=== PATIENT | female | born 1975 | race Caucasian/White ===

== ENCOUNTER 2017-12-04 23:49 | Day surgery (SDC) | payer OTHER ==
[2017-12-05 00:17] VITALS: BP 125/58; TEMP 98.1; BMI 20.1
--- NOTE | 2017-12-05 00:33 | PDOC.EVN ---
Event Note - Event Note Event Note: I ordered robaxin for suspected low back spasm. Clinically, do not suspect pyelo at this time but UA cath just collected for lab
[2017-12-05] MEDS ORDERED: Methocarbamol 500 MG TAB PO SCH (00:45)
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
[2017-12-05 01:25] LABS: Bilirubin Negative (Negative); Blood, Urine Trace (Negative); Clarity CLEAR (Clear); Glucose, Urine (Dipstick) Negative (Negative); Leukocyte Negative (Negative); Nitrite Negative (Negative); Protein, Urine (Dipstick) Negative (Neg-Trace); Specific Gravity, Urine 1.013 (1.002-1.036); Urobilinogen 0.2 mg/dL (0.2-1.0); pH, Urine 6.5 (5.0-9.0)
[2017-12-05 01:28] LABS: Bacteria/HPF None Seen HPF (None Seen); Hyaline Casts/LPF 0-3 HYALINE CAST LPF (0-3 Hyaline); Pathc Cast-AUWi Flag 0.14 (0-2.49); RBC/HPF 0-3 HPF (0-3); Squamous Epithelial 0-3 HPF (0-3); WBC/HPF 0-3 HPF (0-3)
[2017-12-05 01:37] LABS: Renal Epithelial None Seen HPF (0-3); Transitional Epithelial 0-3 HPF (0-3)
--- NOTE | 2017-12-05 01:51 | PDOC.EVN ---
Event Note - Event Note Event Note: urine is clear
[2017-12-05 01:52] LABS: #Eosinphils 0.1 thou/uL (0.0-0.7); #Lymphocytes 1.2 thou/uL (1.20-3.40); #Monocytes 0.6 thou/uL (0.11-0.59); #Neutrophils 12.1 thou/uL (1.40-6.50); %Basophils 0.1 % (0.0-1.0); %Lymphocytes 8.3 % (21.0-51.0); %Monocytes 4.5 % (0.0-10.0); %Neutrophils 86.1 % (42.0-75.0); Hemoglobin 11.8 g/dL (12.0-16.0); Mean Corpuscular HGB CONC 34.1 g/dL (32.0-36.0); Mean Corpuscular Hemoglobin 30.9 pg (27.0-31.0); Mean Corpuscular Volume 90.8 fL (78.0-98.0); Mean Platelet Volume 7.3 fL (7.4-10.4); Platelet Count 259 thou/uL (130-400); RBC Distribution Width 12.8 % (11.5-14.5); Red Blood Cell (RBC) Count 3.81 mill/uL (4.20-5.40); White Blood Cell (WBC) Count 14.1 thou/uL (4.8-10.8)
--- NOTE | 2017-12-05 02:15 | PDOC.EVN ---
Event Note - Event Note Event Note: CBC with WBC of 14. Still afebrile, with negative UA.
[2017-12-05 02:21] LABS: ALT (SGPT) 12 U/L (8-55); AST (SGOT) 15 U/L (5-34); Albumin 3.4 g/dL (3.5-5.0); Alkaline Phosphatase 49 U/L (40-150); Anion Gap 13 mmol/L (10-20); BUN (Urea Nitrogen) 10 mg/dL (7.0-18.7); Bilirubin, Total 0.3 mg/dL (0.2-1.2); Calc. Creatinine Clearance 109 mL/min (70-130); Calcium 9.2 mg/dL (7.8-10.44); Carbon Dioxide 22 mmol/L (22-29); Chloride 108 mmol/L (98-107); Estimated GFR-MDRD Greater than 90; Globulin 2.9 g/dL (2.4-3.5); Glucose 103 mg/dL (70-105); Potassium 3.7 mmol/L (3.5-5.1); Protein, Total 6.3 g/dL (6.0-8.3); Sodium 139 mmol/L (136-145)
--- NOTE | 2017-12-05 02:23 | PDOC.EVN ---
Event Note - Event Note Event Note: Seen at bedside, she feels better after robaxin..pain decraesed. Suspect it was muscle spasm. I also offered 1 liter LR for hydration for conservative care to help with muscle hydration. Order placed. awaiting CMP. If CMP OK, ok for release after the IVFs
--- NOTE | 2017-12-05 02:25 | PDOC.EVN ---
Event Note - Event Note Event Note: CMP is normal
[2017-12-05] MEDS ORDERED: Lactated Ringer's 1,000 ML IV SCH (02:30)
== END 2017-12-05 03:30 | disposition home or self-care (01) ==
LOC: L&D/OP 23:49
PROVIDERS: ATTEND Obstetrics & Gynecology
DX: O99.89 Other specified diseases and conditions complicating pregnancy, childbirth and the puerperium (principal); M54.5 Low back pain; Z3A.21 21 weeks gestation of pregnancy
CPT/HCPCS: 36415; 51701; 80053; 81003; 81015; 85025; 90471; 90686; 96360; 99283; G0008

== ENCOUNTER 2017-12-28 13:53 | Outpatient (CLI) | payer OTHER ==
--- NOTE | 2017-12-28 15:15 | ULT ---
ULTRASOUND RENAL BILATERAL STANDARD: HISTORY: Right flank pain R10.9, unspecified abdominal pain. FINDINGS: The patient is 25 weeks . The patient supposedly passed a renal stone 3 weeks ago. The righ t kidney measures 9.5 x 5.1 x 5.1 cm with moderate right-sided hydronephrosis. Left kidney measures 10.5 x 5.9 x 4.6 cm. Both ureteral jets are visualized. IMPRESSION: Moderate right-sided hydronephrosis with visualized ureteral jets. No calculi are appreciated within the renal collecting systems. POS: [facility]
== END 2017-12-28 13:54 | disposition home or self-care (01) ==
LOC: SCSULT 13:53
PROVIDERS: ATTEND Obstetrics & Gynecology
DX: O99.89 Other specified diseases and conditions complicating pregnancy, childbirth and the puerperium (principal); R10.9 Unspecified abdominal pain; N13.30 Unspecified hydronephrosis; Z3A.25 25 weeks gestation of pregnancy
CPT/HCPCS: 76770

== ENCOUNTER 2018-02-13 17:24 | Inpatient (IN) | payer OTHER ==
[2018-02-13 17:54] VITALS: BMI 22.4
[2018-02-13 18:52] LABS: FFN Internal QC Analyzer PASS (PASS); FFN Internal QC Cassette PASS (PASS); Fetal Fibronectin POSITIVE (Negative)
[2018-02-13] MEDS ORDERED: Lactated Ringer's 1,000 ML IV SCH (19:00)
[2018-02-13] MEDS ORDERED: Promethazine HCl 25 MG/ML VIAL IM PRN (19:22)
[2018-02-13] MEDS ORDERED: Lidocaine 1% (PF) 30 ML VIAL SC PRN (19:22)
[2018-02-13] MEDS ORDERED: Acetaminophen 500 MG TAB PO PRN (19:22)
[2018-02-13] MEDS ORDERED: Butorphanol Tartrate 1 MG/ML VIAL SLOW IVP PRN (19:22)
[2018-02-13] MEDS ORDERED: Ondansetron PF 4 MG/2 ML Vial IVP PRN (19:22)
[2018-02-13] MEDS ORDERED: Magnesium Sulfate 20 GM/WATER 500 ML BAG IVPB SCH (19:30)
[2018-02-13] MEDS ORDERED: Penicillin G Potassium 5 MILL.UNITS in Sodium Chloride 0.9% 100 ML IVPB SCH (19:30)
--- NOTE | 2018-02-13 19:31 | PDOC.LDHP ---
Labor and Delivery H&P Chief complaint: contractions HPI: 42 yo WF sent from office by Dr. Wynn c/o [facility]. Denies SROM or bleeding. Current gestational age (weeks): 31 Due date: 04/12/18 Dating criteria: last menstrual period Grav: 1 Para: 0 OB History Details: none Current complications: none Abnormal US findings: No Past Medical History: asthma Current medications: pre-omari vitamins, other (Advair, rescue inhaler) Previous surgical history: other (rhinoplasy x 2) Allergies/Adverse Reactions: Allergies Allergy/AdvReac Type Severity Reaction Status Date / Time No Known Allergies Allergy Verified 02/13/18 17:55 Social history: none - Physical Exam Vital signs reviewed and normal: yes General: resting Lungs: nonlabored breathing Abdomen: gravid Extremeties: no edema FHT: category 1 [place] contractions every: Ucs q 2-3 mins. - Vaginal Exam cm dilated: 1 Effacement: 75% Station: -1 - OB Labs Blood type: unknown RH: unknown Antibody Screen: unknown - Assessment L&D Assessment: labor - Plan Plan: admit to L&D, magnesium for neuroprotection (steroids for FLM, Dr. Wynn notified)
[2018-02-13] MEDS ORDERED: Magnesium Sulfate 20 gm/500 ml 20 GM/500 ML BAG ONE (19:35)
[2018-02-13] MEDS: Lactated Ringer's 1,000 ML IV SCH (19:53)
[2018-02-13] MEDS: Betamet Acet/Betamet Na Ph 30 MG/5 ML VIAL IM SCH (20:05)
--- NOTE | 2018-02-13 21:07 | ULT ---
OB ULTRASOUND: 02/13/18 HISTORY: female with labor. TECHNIQUE: Multiplanar mariano scale and color doppler images were obtained in a transabdominal ultrasound. FINDINGS: There is a single intrauterine with heart rate of 132 beats per minute. Average age of the fetus based off today's examination is 32 weeks, 2 days. The following measurements were taken and da reyna based off these measurements are as follows: BPD 8.63 cm 34 weeks, 6 days HC 30.76 cm 34 weeks, 2 days AC 27.43 cm 31 weeks, 4 days FL 5.51 cm 29 weeks, 0 days Estimated weight is 1735 grams. The placenta is anterior in location without focal abnormality. The fetus is in vertex presentation. LEON is 17.8 cm, which is normal. IMPRESSION: 1. Single live intrauterine with estimated age of 32 weeks, 2 days. 2. There are discrepant biometric measurements with relative increase size of the head com pared to the femur length and abdominal circumference. This is of uncertain significance. POS: [facility]
[2018-02-13 21:18] LABS: #Basophils 0.1 thou/uL (0.0-0.2); #Eosinphils 0.1 thou/uL (0.0-0.7); #Lymphocytes 2.7 thou/uL (1.20-3.40); #Monocytes 0.6 thou/uL (0.11-0.59); #Neutrophils 8.9 thou/uL (1.40-6.50); %Basophils 0.6 % (0.0-1.0); %Lymphocytes 21.8 % (21.0-51.0); %Monocytes 4.4 % (0.0-10.0); %Neutrophils 72.2 % (42.0-75.0); Hemoglobin 14.2 g/dL (12.0-16.0); Mean Corpuscular HGB CONC 34.4 g/dL (32.0-36.0); Mean Corpuscular Volume 90.1 fL (78.0-98.0); Mean Platelet Volume 8.1 fL (7.4-10.4); Platelet Count 251 thou/uL (130-400); RBC Distribution Width 12.2 % (11.5-14.5); Red Blood Cell (RBC) Count 4.59 mill/uL (4.20-5.40); White Blood Cell (WBC) Count 12.3 thou/uL (4.8-10.8)
[2018-02-13 21:28] LABS: Bilirubin Negative (Negative); Blood, Urine Negative (Negative); Clarity CLEAR (Clear); Glucose, Urine (Dipstick) Negative (Negative); Leukocyte Negative (Negative); Nitrite Negative (Negative); Protein, Urine (Dipstick) Negative (Neg-Trace); Specific Gravity, Urine 1.006 (1.002-1.036); Urobilinogen 0.2 mg/dL (0.2-1.0); pH, Urine 7.5 (5.0-9.0)
[2018-02-13 21:30] LABS: Bacteria/HPF None Seen HPF (None Seen); Hyaline Casts/LPF 0-3 HYALINE CAST LPF (0-3 Hyaline); Pathc Cast-AUWi Flag 0.14 (0-2.49); RBC/HPF 0-3 HPF (0-3); Squamous Epithelial 0-3 HPF (0-3); WBC/HPF None Seen HPF (0-3)
[2018-02-13 21:35] VITALS: BP 123/58; TEMP 98.1
[2018-02-13 21:59] LABS: Syphilis Antibody Nonreactive (Nonreactive); Syphilis Antibody Index 0.03 S/CO (<1.00 Non-Reactive)
[2018-02-13 22:07] LABS: HIV (1/2) Antibody/Antigen Non-Reactive (NonReactive); Hep B Surf Ag Non-Reactive S/CO (NonReactive)
[2018-02-14] MEDS: Penicillin G 2.5 MILL.units 2.5 MILL.UNITS in Premix Bag 1 BAG IVPB SCH ×7 (01:10→21:37)
[2018-02-14] MEDS: Magnesium Sulfate 20 gm/500 ml 20 GM/500 ML BAG IVPB SCH ×2 (03:51→15:57)
--- NOTE | 2018-02-14 12:02 | PDOC.LDPN ---
Labor & Delivery Progress Note - Subjective Subjective: other (Feels slightly dizzy, no SOB or CP. No ctx. Good FM. No LOF. ) - Objective Vital signs reviewed and normal: yes General: NAD Uterine fundus: non tender FHT: category 1 (120s, reactive ) [place] contractions every: q10 min - Assessment (1) 31 weeks gestation of Code(s): Z3A.31 - 31 WEEKS GESTATION OF Current Visit: Yes Status : Acute (2) labor Code(s): O60.00 - LABOR WITHOUT DELIVERY, UNSPECIFIED TRIMESTER Current Visit: Yes Status: Acute (3) Advanced maternal age (AMA) in Code(s): [id number] - Current Visit: Yes Status: Acute -: Continue magnesium for neuroprotection and tocolysis. Decrease rate and check mag level due to sx. Good DTRs. Complete BMTZ course tomorrow for FLM. Continue GBS PPX until culture complete. Continue observation in L&D.
[2018-02-14] MEDS: Lactated Ringer's 1,000 ML IV SCH ×2 (12:22→21:38)
[2018-02-14] MEDS ORDERED: Benzocaine/Menthol 20-0.5% 60 ML CAN TOP PRN (20:50)
[2018-02-14] MEDS: Betamet Acet/Betamet Na Ph 30 MG/5 ML VIAL IM SCH (21:36)
[2018-02-15] MEDS: Penicillin G 2.5 MILL.units 2.5 MILL.UNITS in Premix Bag 1 BAG IVPB SCH ×2 (01:23→05:47)
[2018-02-15] MEDS: Lactated Ringer's 1,000 ML IV SCH ×3 (05:42→22:34)
--- NOTE | 2018-02-15 08:42 | PDOC.LDPN ---
Labor & Delivery Progress Note - Subjective Subjective: comfortable - Objective Vital signs reviewed and normal: yes General: NAD Uterine fundus: non tender Dilation: FT Effacement: 75% Station: -2 FHT: category 1 (120s, reactive, no decels ) [place] contractions every: no ct x - Assessment (1) 31 weeks gestation of Code(s): Z3A.31 - 31 WEEKS GESTATION OF Current Visit: Yes Status : Acute (2) labor Code(s): O60.00 - LABOR WITHOUT DELIVERY, UNSPECIFIED TRIMESTER Current Visit: Yes Status: Acute (3) Advanced maternal age (AMA) in Code(s): [id number] - Current Visit: Yes Status: Acute -: Completed BMTZ course for FLM and Mag for neuroprotection. D/C mag as not longer ctx and exam stable. Monitory today and plan for possible d/c this evening vs tomorrow morning.
--- NOTE | 2018-02-15 19:10 | PDOC.LDPN ---
Labor & Delivery Progress Note - Subjective Subjective: comfortable - Objective Vital signs reviewed and normal: yes General: NAD Uterine fundus: non tender FHT: category 2 (120s-130s, mod gregorio, +accels, rare prolonged decel, most recent with william to 70s with recovery after 3-4 min) - Assessment (1) 31 weeks gestation of Code(s): Z3A.31 - 31 WEEKS GESTATION OF Current Visit: Yes Status : Acute (2) labor Code(s): O60.00 - LABOR WITHOUT DELIVERY, UNSPECIFIED TRIMESTER Current Visit: Yes Status: Acute (3) Advanced maternal age (AMA) in Code(s): [id number] - Current Visit: Yes Status: Acute -: s/p mag and BMTZ. Pt no longer have ctx. Cat 2 FHTs on occasion, currently reactive and reassuring. BPP 8/8. Clinically no signs of placental abruption. Continuous EFM at this time. Keep NPO. If reactive overnight, repeat BPP with dopplers in the AM. Reviewed with pt that if she has continued decels, delivery may be necessary. Reviewed indications for premature delivery.
[2018-02-15 19:41] LABS: #Lymphocytes 1.2 thou/uL (1.20-3.40); #Monocytes 0.8 thou/uL (0.11-0.59); #Neutrophils 11.9 thou/uL (1.40-6.50); %Basophils 0.3 % (0.0-1.0); %Eosinophils 0.3 % (0.0-10.0); %Lymphocytes 8.7 % (21.0-51.0); %Neutrophils 84.7 % (42.0-75.0); Hemoglobin 10.9 g/dL (12.0-16.0); Mean Corpuscular HGB CONC 33.8 g/dL (32.0-36.0); Mean Corpuscular Hemoglobin 30.9 pg (27.0-31.0); Mean Corpuscular Volume 91.5 fL (78.0-98.0); Mean Platelet Volume 8.1 fL (7.4-10.4); Platelet Count 189 thou/uL (130-400); RBC Distribution Width 12.1 % (11.5-14.5); Red Blood Cell (RBC) Count 3.53 mill/uL (4.20-5.40); White Blood Cell (WBC) Count 14.1 thou/uL (4.8-10.8)
[2018-02-15 19:46] LABS: Fibrinogen 530 mg/dL (253-463); INR-International Normal Ratio 0.9; Prothrombin Time 12.7 SEC (12.0-14.7)
--- NOTE | 2018-02-15 19:49 | ULT ---
NONSTRESS BIOPHYSICAL PROFILE 02/15/18 HISTORY: 31 weeks patient. decelerations on monitor. COMPARISON: None. TECHNIQUE: Nonstress biophysical profile. FINDINGS: Vertex presentation. heart tones with a rate of 127 beats per minute. Amniotic fluid index is 1 6 cm. The visualized cervix appears to be unremarkable. The exact cervical length is not demonstrated . The anterior placenta is noted. Limited evaluation for the presence or absence of previa. Baseline image is provided, there does not appear to be previa. Nonstress biophysical profile: movement - 2 tone - 2 breathing - 2 Amniotic fluid - 2 Total score 8 out of 8. IMPRESSION: 1. Total score 8 out of 8. 2. Suboptimal evaluation of the cervix. POS: [facility]
[2018-02-15 19:50] LABS: FSP-Qualitative ABNORMAL (Normal); FSP-Semiquantitative >=5 & <20 mcg/mL (Less than 5)
[2018-02-16] MEDS: Lactated Ringer's 1,000 ML IV SCH ×2 (04:31→06:47)
--- NOTE | 2018-02-16 06:26 | PDOC.LDPN ---
Labor & Delivery Progress Note - Objective Vital signs reviewed and normal: yes General: NAD Uterine fundus: non tender [place] contractions every: rare - Assessment (1) labor Code(s): O60.00 - LABOR WITHOUT DELIVERY, UNSPECIFIED TRIMESTER Current Visit: Yes Status: Acute Plan: continue plan of care (Patient is 32 weeks today, last celestone was on ...now off Mag. Here with cvontinued monitoring for decels..BPP was 8/ 8 on 02/15. Prob home today or tomorrow as long as decels are non-persistent. CX was at most 1 cm by report)
[2018-02-16 07:34] LABS: #Lymphocytes 1.7 thou/uL (1.20-3.40); #Monocytes 0.7 thou/uL (0.11-0.59); #Neutrophils 10.3 thou/uL (1.40-6.50); %Basophils 0.2 % (0.0-1.0); %Eosinophils 0.3 % (0.0-10.0); %Lymphocytes 13.6 % (21.0-51.0); %Monocytes 5.6 % (0.0-10.0); %Neutrophils 80.3 % (42.0-75.0); Hemoglobin 10.7 g/dL (12.0-16.0); Mean Corpuscular HGB CONC 33.4 g/dL (32.0-36.0); Mean Corpuscular Hemoglobin 30.8 pg (27.0-31.0); Mean Corpuscular Volume 92.3 fL (78.0-98.0); Mean Platelet Volume 7.8 fL (7.4-10.4); Platelet Count 179 thou/uL (130-400); RBC Distribution Width 12.2 % (11.5-14.5); Red Blood Cell (RBC) Count 3.46 mill/uL (4.20-5.40); White Blood Cell (WBC) Count 12.8 thou/uL (4.8-10.8)
--- NOTE | 2018-02-16 13:18 | ULT ---
SONOGRAPHIC BIOPHYSICAL PROFILE EXAM UMBILICAL ARTERY DUPLEX EXAM: HISTORY: Third trimester gestation. distress. FINDINGS: Good movement, breathing movement, and tone are demonstrated. Amniotic fluid index 10.4. Good color and spectral Doppler flow within the umbilical artery. S-D ratio calculated at 2.5. IMPRESSION: 1. Sonographic biophysical profile score 8/8. 2. Normal umbilical artery duplex evaluation. POS: [facility]
--- NOTE | 2018-02-17 02:27 | DIS ---
DATE OF ADMISSION: 02/14/2018 DATE OF DISCHARGE: 02/16/2018 ADMISSION DIAGNOSES: 1. 31-week and 5-day intrauterine . 2. labor. DISCHARGE DIAGNOSES: 1. 31-week and 5-day intrauterine . 2. labor. 3. Intermittent deceleration, which has resolved with prolonged observation. DISCHARGE PHYSICIAN: Adilia Morrissey DO BRIEF HOSPITAL COURSE: Ms. Maximiliano Pires is a 42-year-old G1, P0, who presented at 31 weeks and 5 days with contractions and positive fibronectin and found to be approximately 1 cm dilated, 70% effaced. The patient was admitted for administration of magnesium for neuroprotection, betamethasone course for lung maturity, and observation due to labor. Her labor seized with magnesium for tocolysis and she completed her course of betamethasone. Yesterday afternoon, the patient's fetus had acute prolonged deceleration intermittently by multiple hours and therefore, she underwent prolonged observation. She has had 2 biophysical profiles, which were 8/8 and had normal umbilical artery doppler assessment this morning. Her fetus has remained reassuring the entire day today, suspect that the decelerations that were seen were possibly due to maternal positioning and just transient intermittent, do not suspect evidence of any placental insufficiency or any other concerning pathology. Therefore, the patient was counseled and at this point the patient is appropriate for outpatient followup. Discussed in great detail the importance of kick counts and present to Labor and Delivery or to call the office with concern. FOLLOWUP: Weekly appointments. DISPOSITION: Discharged home. DISCHARGE MEDICATIONS: Continue home albuterol, Advair, and vitamins. Job ID: [id number] [facility]
--- NOTE | 2018-02-21 14:21 | ULT ---
SONOGRAPHIC BIOPHYSICAL PROFILE EXAM UMBILICAL ARTERY DUPLEX EXAM: HISTORY: Third trimester gestation. distress. FINDINGS: Good movement, breathing movement, and tone are demonstrated. Amniotic fluid index 10.4. Good color and spectral Doppler flow within the umbilical artery. S-D ratio calculated at 2.5. IMPRESSION: 1. Sonographic biophysical profile score 8/8. 2. Normal umbilical artery duplex evaluation.
== END 2018-02-16 17:12 | disposition home health service (06) | DRG 833 ==
LOC: L&D/OP 17:24 → L&D 02-14 01:20 → OBSVTOIN 02-14 01:20
PROVIDERS: ADMIT Obstetrics & Gynecology; ATTEND Obstetrics & Gynecology
DX: O60.03 Preterm labor without delivery, third trimester (principal); O76 Abnormality in fetal heart rate and rhythm complicating labor and delivery; J45.909 Unspecified asthma, uncomplicated; O99.513 Diseases of the respiratory system complicating pregnancy, third trimester; Z3A.31 31 weeks gestation of pregnancy
CPT/HCPCS: 36415; 51702; 76700; 76805; 76819; 81001; 82731; 83735; 85025; 85362; 85384; 85460; 85610; 86780; 86850; 86870; 86900; 86901; 87081; 87340; 87389; 99285; J0702; J2540; J3475; J7050

== ENCOUNTER 2018-02-18 15:29 | Day surgery (SDC) | payer OTHER ==
[2018-02-18] MEDS: Lactated Ringer's 1,000 ML IV SCH ×2 (15:45→16:57)
[2018-02-18 15:48] VITALS: BMI 22.6
--- NOTE | 2018-02-18 18:30 | ULT ---
LIMITED OB ULTRASOUND: HISTORY: A 42-year-old female with a history of pre-term contractions. Exam is limited only to cervical lengt h. FINDINGS: Cervical length equals 2.7 cm. The fetus is in a cephalic presentation. IMPRESSION: Cervical length 2.7 cm. These results were given to Dr. Gallegos at the time of the exam, by the radiographic technologist. CODE CR POS: [facility]
--- NOTE | 2018-02-18 18:52 | ER ---
DATE OF SERVICE: 02/18/2018 PRIMARY DRY SANDER: Adilia Morrissey DO CHIEF COMPLAINT: Uterine contractions. HISTORY OF PRESENT ILLNESS: The patient is a 42-year-old G1, P0 female with an intrauterine at 31 weeks, who is presenting to OB ER from clinic after the patient was evaluated there and noted to have uterine contractions about every minute. The patient was recently admitted for concerns of labor and was given steroids at that time for lung maturity. On arrival, the patient reports that she is not feeling any uterine contraction. She denies any recent illness, fever, fall, headache, chest pain, shortness of breath, nausea, vomiting, diarrhea, or constipation. She denies any new rashes, hip problems, knee problems, muscle weakness. Denies vaginal bleeding, leakage of fluid or urinary urgency. PAST MEDICAL HISTORY: Significant for asthma. PAST SURGICAL HISTORY: Rhinoplasty twice. ALLERGIES: NO KNOWN DRUG ALLERGIES. SOCIAL HISTORY: Denies drug, alcohol, tobacco use. OB LABS: Unavailable at time of dictation. REVIEW OF SYSTEMS: Per HPI. PHYSICAL EXAMINATION: VITAL SIGNS: Blood pressure 129/66, heart rate 78, respiratory rate of 18, and temperature 98.2. GENERAL: She appears to be in no acute distress. She is alert, oriented, cooperative, pleasant to interact with. HEAD: Normocephalic and atraumatic. LUNGS: Clear to auscultation bilaterally. HEART: Regular rate and rhythm. ABDOMEN: Soft. EXTREMITIES: Nontender and nonedematous. : Has been deferred at this time, but is reported in the clinic to be fingertip, 70% effaced. heart tracing demonstrates the fetus with a baseline in the 140s with moderate long-term variability with 15 x 15 accelerations. She is having contractions that are irritable in nature with other contractions more visible about 7 minutes apart. The patient denies feeling any contractions that are visible on the monitor. A length was performed. The patient was noted to have a cervical length of 2.8 cm. The patient has received 2 L of IV fluids and is feeling really good. ASSESSMENT AND PLAN: The patient is a 42-year-old G1, P0 female with an intrauterine at 32 weeks and 3 days, who presented to Labor and Delivery ER for further evaluation after uterine contractions were noted on her testing in clinic. The patient has no evidence of labor at this time. In fact, the patient has a cervical length of 2.8 cm today reducing her chances of labor. The patient has been given reassurance. She has a category 1 tracing and reactive NST. The patient's doctor, Dr. Morrissey has been updated on our findings. The patient will be discharged home with followup as scheduled with Dr. Morrissey. labor precautions are provided with instructions to return should she experiences painful contractions more than 4 to 5 an hour. Job ID: [id number]
== END 2018-02-18 17:55 | disposition home health service (06) ==
LOC: L&D/OP 15:29
PROVIDERS: ATTEND Obstetrics & Gynecology
DX: O47.03 False labor before 37 completed weeks of gestation, third trimester (principal); O99.513 Diseases of the respiratory system complicating pregnancy, third trimester; J45.909 Unspecified asthma, uncomplicated; Z3A.32 32 weeks gestation of pregnancy; Z98.890 Other specified postprocedural states; Z79.51 Long term (current) use of inhaled steroids; Z91.040 Latex allergy status
CPT/HCPCS: 76815

== ENCOUNTER 2018-03-18 16:10 | Day surgery (SDC) | payer OTHER ==
[2018-03-18 16:47] VITALS: BMI 22.6
[2018-03-18 17:24] VITALS: BP 118/68; TEMP 98.7
[2018-03-18 17:50] LABS: Bilirubin Negative (Negative); Blood, Urine Negative (Negative); Clarity CLEAR (Clear); Glucose, Urine (Dipstick) Negative (Negative); Leukocyte Small (Negative); Nitrite Negative (Negative); Protein, Urine (Dipstick) Negative (Neg-Trace); Specific Gravity, Urine 1.023 (1.002-1.036); Urobilinogen 0.2 mg/dL (0.2-1.0)
[2018-03-18 17:52] LABS: Bacteria/HPF None Seen HPF (None Seen); Hyaline Casts/LPF 0-3 HYALINE CAST LPF (0-3 Hyaline); Pathc Cast-AUWi Flag 0.14 (0-2.49); RBC/HPF 0-3 HPF (0-3)
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
== END 2018-03-18 18:30 | disposition home or self-care (01) ==
LOC: L&D/OP 16:10
PROVIDERS: ATTEND Obstetrics & Gynecology
DX: O16.3 Unspecified maternal hypertension, third trimester (principal); Z3A.36 36 weeks gestation of pregnancy; Z98.890 Other specified postprocedural states; Z79.51 Long term (current) use of inhaled steroids; Z91.040 Latex allergy status
CPT/HCPCS: 59025; 81001; 99283

== ENCOUNTER 2018-03-25 06:00 | Inpatient (IN) | payer OTHER ==
--- NOTE | 2018-03-24 19:29 | PDOC.LDHP ---
Labor and Delivery H&P Chief complaint: scheduled induction HPI: 42 yo G1 @ 37w2d by LMP who presents for IOL due to GHTN. Antepartum course also complicated by asthma, labor and AMA. Current gestational age (weeks): 37 Due date: 04/12/18 Dating criteria: last menstrual period Grav: 1 Current complications: gestational hypertension Abnormal US findings: No Past Medical History: Asthma Current medications: pre- vitamins, other (advair) Previous surgical history: other (nasal reconstruction) Allergies/Adverse Reactions: Allergies Allergy/AdvReac Type Severity Reaction Status Date / Time latex Allergy Intermediate Rash Verified 02/16/18 17:08 Social history: none - Physical Exam Vital signs reviewed and normal: yes General: NAD Heart: RRR Lungs: nonlabored breathing Abdomen: gravid Extremeties: no edema FHT: category 1 (130s, mod gregorio, +accels, no decels) [place] contractions every: q5+ min - Vaginal Exam cm dilated: 3 (cephalic ) Effacement: 90% Station: -1 - OB Labs Blood type: A RH: negative Antibody Screen: negative HIV: negative RPR: negative HEPSAg: negative 1 hour GCT: negative GBS: negative Urine drug screen: not done Rubella: immune Additional Labs: NIPT, msAFP, carrier screening negative - Assessment 37w3d IUP GHTN AMA Asthma Rh neg - Plan Plan: admit to L&D (start pitocin for IOL), informed consent obtained, anesthesia consult for pain management -: Josueam MAGNUS
[2018-03-25] MEDS ORDERED: Diphenoxylate HCl/Atropine Tablet PO PRN (07:09)
[2018-03-25] MEDS ORDERED: Ibuprofen 800 MG TAB PO PRN (07:09)
[2018-03-25] MEDS ORDERED: Methylergonovine 0.2 MG/ML VIAL IM PRN (07:09)
[2018-03-25] MEDS ORDERED: NS / Oxytocin 40 units/1000ml 1,000 ML IV PRN (07:09)
[2018-03-25] MEDS ORDERED: Butorphanol Tartrate 1 MG/ML VIAL SLOW IVP PRN (07:09)
[2018-03-25] MEDS ORDERED: Acetaminophen 500 MG TAB PO PRN (07:09)
[2018-03-25] MEDS ORDERED: Misoprostol 200 MCG TAB PR PRN (07:09)
[2018-03-25] MEDS ORDERED: HYDROcodone/Acetaminophen 5/325 mg Tablet PO PRN ×2 (07:09→18:05)
[2018-03-25] MEDS ORDERED: Carboprost 250 MCG/ML AMP IM PRN (07:09)
[2018-03-25] MEDS ORDERED: Promethazine HCl 25 MG/ML VIAL IM PRN ×2 (07:09→13:49)
[2018-03-25] MEDS ORDERED: Ondansetron PF 4 MG/2 ML Vial IVP PRN ×2 (07:09→13:49)
[2018-03-25] MEDS ORDERED: Lidocaine 1% (PF) 30 ML VIAL SC PRN (07:09)
[2018-03-25 07:51] VITALS: BMI 22.8
[2018-03-25 07:51] LABS: Hemoglobin 13.1 g/dL (12.0-16.0); Mean Corpuscular HGB CONC 33.9 g/dL (32.0-36.0); Mean Corpuscular Hemoglobin 30.4 pg (27.0-31.0); Mean Corpuscular Volume 89.8 fL (78.0-98.0); Mean Platelet Volume 8.2 fL (7.4-10.4); Platelet Count 239 thou/uL (130-400); Red Blood Cell (RBC) Count 4.29 mill/uL (4.20-5.40); White Blood Cell (WBC) Count 9.3 thou/uL (4.8-10.8)
[2018-03-25 08:12] LABS: ALT (SGPT) 15 U/L (8-55); AST (SGOT) 25 U/L (5-34); Albumin 3.2 g/dL (3.5-5.0); Alkaline Phosphatase 181 U/L (40-150); Anion Gap 16 mmol/L (10-20); BUN (Urea Nitrogen) 9 mg/dL (7.0-18.7); Bilirubin, Total Less than 0.2 mg/dL (0.2-1.2); Calc. Creatinine Clearance 115 mL/min (70-130); Calcium 8.4 mg/dL (7.8-10.44); Carbon Dioxide 17 mmol/L (22-29); Chloride 109 mmol/L (98-107); Estimated GFR-MDRD Greater than 90; Globulin 2.8 g/dL (2.4-3.5); Glucose 117 mg/dL (70-105); Potassium 4.2 mmol/L (3.5-5.1); Sodium 138 mmol/L (136-145)
[2018-03-25 08:30] LABS: Syphilis Antibody Nonreactive (Nonreactive); Syphilis Antibody Index 0.03 S/CO (<1.00 Non-Reactive)
[2018-03-25 08:39] LABS: HBSAg Index 0.19 S/CO (0-0.99); HIV (1/2) Antibody/Antigen Non-Reactive (NonReactive); HIV 1/2 INDEX 0.08 S/CO (<1.00); Hep B Surf Ag Non-Reactive S/CO (NonReactive)
[2018-03-25 11:47] LABS: Bilirubin Negative (Negative); Blood, Urine Large (Negative); Clarity CLEAR (Clear); Glucose, Urine (Dipstick) Negative (Negative); Leukocyte Negative (Negative); Nitrite Negative (Negative); Protein, Urine (Dipstick) Negative (Neg-Trace); Urobilinogen 0.2 mg/dL (0.2-1.0)
[2018-03-25 11:49] LABS: Bacteria/HPF None Seen HPF (None Seen); Hyaline Casts/LPF 0-3 HYALINE CAST LPF (0-3 Hyaline); Pathc Cast-AUWi Flag 0.14 (0-2.49); RBC/HPF GREATER THAN 50-TNTC HPF (0-3); Squamous Epithelial None Seen HPF (0-3); WBC/HPF None Seen HPF (0-3)
--- NOTE | 2018-03-25 13:01 | PDOC.LDPN ---
Labor & Delivery Progress Note - Subjective Subjective: comfortable - Objective Vital signs reviewed and normal: yes Abnormal vital signs: Normal - mild range BPs General: NAD Uterine fundus: non tender Dilation: 5 Effacement: 90% Station: -1 FHT: category 2 (130s, mod gregorio, occasional late decel with ctx that resolve with position changes. ) [place] contractions every: q2 min AROM: clear fluid Resuscitative measures: maternal position change - Assessment (1) 37 weeks gestation of Code(s): Z3A.37 - 37 WEEKS GESTATION OF Current Visit: Yes Status : Acute (2) Gestational hypertension Code(s): O13.9 - GESTATIONAL HTN W/O SIGNIFICANT PROTEINURIA, UNSP TRIMESTER Current Visit: Yes Status: Acute (3) Advanced maternal age (AMA) in Code(s): [id number] - Current Visit: No Status: Acute Plan: continue plan of care, resuscitative measures
[2018-03-25] MEDS ORDERED: Fentanyl 4 mcg/Bup 0.1% Cadd 100 ML ONE (13:21)
[2018-03-25] MEDS ORDERED: Lidocaine 1.5% w/Epi 1:200K 30 ML VIAL (Epid Use) ONE (13:21)
[2018-03-25] MEDS ORDERED: Lactated Ringer's 500 ML IV PRN (13:49)
[2018-03-25] MEDS ORDERED: diphenhydrAMINE 50 MG/ML VIAL IVP PRN (13:49)
[2018-03-25] MEDS ORDERED: Naloxone HCl 0.4 mg/ml Vial IVP PRN ×2 (13:49)
[2018-03-25] MEDS ORDERED: ePHEDrine/0.9% NaCl/PF SYRINGE 50 mg/10 ml SLOW IVP PRN (13:49)
[2018-03-25] MEDS ORDERED: Eucerin (Mineral Oil/Petrolatum,White) 30 gm Jar TOP PRN (13:49)
[2018-03-25] MEDS ORDERED: Acetaminophen 325 MG TAB PO PRN (13:49)
[2018-03-25] MEDS: Lactated Ringer's 1,000 ML IV SCH ×2 (13:50→17:16)
[2018-03-25] MEDS ORDERED: Fentanyl 4 mcg/Bupivacaine 0.1% Cassette 100 ML EPIDURAL SCH (14:00)
[2018-03-25] MEDS ORDERED: Communication Order-Pharmacy FS SCH (14:00)
[2018-03-25] MEDS ORDERED: Bupivacaine/Epinephrine 0.25% 30 ML VIAL ONE (15:00)
[2018-03-25] MEDS ORDERED: Lidocaine 1% (PF) 30 ML VIAL ONE ×2 (15:06→17:13)
[2018-03-25] MEDS ORDERED: NS / Oxytocin 40 units/1000ml 1,000 ML ONE ×2 (15:06→17:13)
--- NOTE | 2018-03-25 16:34 | PDOC.OPDEL ---
OB Operative/Delivery Note Delivery Dr/Surgeon: Adilia Morrissey DO Pre-Delivery Diagnosis: medically indicated induction Procedure/Post Delivery Dx: spontaneous vaginal delivery Weeks gestation: 37 Anesthesia: epidural - Findings A Sex: male - 1 min: 8 - 5 min: 9 - Additional Findings/Plan Placenta delivered: spontaneous Repaired Obstetrical Laceration: 2nd degree Estimated blood loss: 200 cc Post delivery plan: routine recovery
[2018-03-25] MEDS: NS w/ Oxytocin 10 units 500 ML IV SCH (17:16)
[2018-03-25] MEDS ORDERED: Bisacodyl 10 MG SUPP PR PRN (18:05)
[2018-03-25] MEDS ORDERED: Preparation H Ointment 28 GM TUBE PR PRN (18:05)
[2018-03-25] MEDS ORDERED: Milk Of Magnesia 30 ML UDCUP PO PRN (18:05)
[2018-03-25] MEDS ORDERED: diphenhydrAMINE 25 MG CAP PO PRN (18:05)
[2018-03-25] MEDS ORDERED: NS / Oxytocin 40 units/1000ml 1,000 ML IV SCH (18:05)
[2018-03-25] MEDS ORDERED: Benzocaine/Menthol 20-0.5% 60 ML CAN TOP PRN (18:05)
[2018-03-25] MEDS: Ibuprofen 800 MG TAB PO SCH (22:04)
[2018-03-25] MEDS: Docusate Calcium (SURFAK) 240 MG CAP PO SCH (22:04)
[2018-03-26] MEDS: Ibuprofen 800 MG TAB PO SCH ×3 (06:15→22:11)
[2018-03-26 06:36] LABS: Hemoglobin 12.1 g/dL (12.0-16.0); Mean Corpuscular HGB CONC 32.9 g/dL (32.0-36.0); Mean Corpuscular Hemoglobin 30.1 pg (27.0-31.0); Mean Corpuscular Volume 91.2 fL (78.0-98.0); Mean Platelet Volume 7.9 fL (7.4-10.4); Platelet Count 198 thou/uL (130-400); RBC Distribution Width 13.3 % (11.5-14.5); Red Blood Cell (RBC) Count 4.02 mill/uL (4.20-5.40); White Blood Cell (WBC) Count 17.1 thou/uL (4.8-10.8)
--- NOTE | 2018-03-26 08:54 | PDOC.PP ---
Post Progress Note Post Day #: 1 Subjective: min lochia, baby latching well, only concern is urinary incontinence. PO intake tolerated: yes Flatus: yes Ambulation: yes Vital Signs (12 hours) Temp Pulse Resp BP Pulse Ox 03/26/18 08:00 98.1 F 78 20 127/61 95 03/26/18 04:15 79 18 132/70 99 03/26/18 01:30 98.4 F 86 18 137/77 Weight Weight 137 lb - Physical Examination General: NAD Respiratory: non-labored breathing Abdominal: no distention Fundus firm & at: below umb Skin: no rash Neurological: no gross focal deficits Psychiatric: A&Ox3, normal affect Result Diagrams: 03/26/18 06:09 03/25/18 07:22 Additional Labs: Post Labs Blood Type A NEGATIVE 03/25/18 07:22 Hep Bs Antigen Non-Reactive S/CO (NonReactive) 03/25/18 07:22 (1) Vaginal delivery Code(s): O80 - ENCOUNTER FOR FULL-TERM UNCOMPLICATED DELIVERY Status: Acute (2) 37 weeks gestation of Code(s): Z3A.37 - 37 WEEKS GESTATION OF Status: Acute - Assessment/Plan PPD1, doing well, discussed normal vs abn post delivery incontinence. Likely DC tomorrow.
[2018-03-26] MEDS: Docusate Calcium (SURFAK) 240 MG CAP PO SCH ×2 (09:36→22:09)
[2018-03-27] MEDS: NS w/ Oxytocin 10 units 500 ML IV SCH ×2 (05:25→10:10)
[2018-03-27] MEDS: Ibuprofen 800 MG TAB PO SCH (06:17)
--- NOTE | 2018-03-27 08:13 | PDOC.PP ---
Post Progress Note Post Day #: 2 Subjective: Breast feeding. Mild pain and lochia. Urinary incontinence has improved. No other concerns. PO intake tolerated: yes Flatus: yes Ambulation: yes Vital Signs (12 hours) Temp Pulse Resp BP Pulse Ox 03/27/18 01:25 65 18 128/60 03/26/18 20:27 98.3 F 87 16 132/66 95 Weight Weight 137 lb - Physical Examination General: NAD Cardiovascular: RRR Respiratory: non-labored breathing Abdominal: no distention, appropriately TTP Fundus firm & at: below umbilicus Extremities: negative homans (B) Neurological: no gross focal deficits Psychiatric: A&Ox3, normal affect Result Diagrams: 03/26/18 06:09 03/25/18 07:22 Additional Labs: Post Labs Blood Type A NEGATIVE 03/25/18 07:22 Hep Bs Antigen Non-Reactive S/CO (NonReactive) 03/25/18 07:22 (1) 37 weeks gestation of Code(s): Z3A.37 - 37 WEEKS GESTATION OF Status: Resolved (2) Gestational hypertension Code(s): O13.9 - GESTATIONAL HTN W/O SIGNIFICANT PROTEINURIA, UNSP TRIMESTER Status: Resolved (3) Advanced maternal age (AMA) in Code(s): [id number] - Status: Resolved (4) Vaginal delivery Code(s): O80 - ENCOUNTER FOR FULL-TERM UNCOMPLICATED DELIVERY Status: Acute - Assessment/Plan PPD2 VSSAF BPs wnl. D/C home today with infat
[2018-03-27 08:25] VITALS: BP 131/61; TEMP 98.8
[2018-03-27] MEDS: Docusate Calcium (SURFAK) 240 MG CAP PO SCH (10:25)
== END 2018-03-27 13:37 | disposition home or self-care (01) | DRG 807 ==
LOC: L&D 06:44 → 3SW 18:32
PROVIDERS: ADMIT Obstetrics & Gynecology; ATTEND Obstetrics & Gynecology
PROC: 0KQM0ZZ Repair Perineum Muscle, Open Approach (ICD-10-PCS; principal; 2018-03-25)
PROC: 10E0XZZ Delivery of Products of Conception, External Approach (ICD-10-PCS; 2018-03-25)
PROC: 4A1HXCZ Monitoring of Products of Conception, Cardiac Rate, External Approach (ICD-10-PCS; 2018-03-25)
PROC: 4A1HXFZ Monitoring of Products of Conception, Cardiac Rhythm, External Approach (ICD-10-PCS; 2018-03-25)
PROC: 3E033VJ Introduction of Other Hormone into Peripheral Vein, Percutaneous Approach (ICD-10-PCS; 2018-03-25)
DX: O13.4 Gestational [pregnancy-induced] hypertension without significant proteinuria, complicating childbirth (principal); Z37.0 Single live birth; Z3A.37 37 weeks gestation of pregnancy; O70.1 Second degree perineal laceration during delivery; O99.52 Diseases of the respiratory system complicating childbirth; O76 Abnormality in fetal heart rate and rhythm complicating labor and delivery; J45.909 Unspecified asthma, uncomplicated
CPT/HCPCS: 36415; 51702; 80053; 81001; 85027; 85461; 86780; 86850; 86900; 86901; 87340; 87389; 90384; 96372; J2001

== ENCOUNTER 2021-08-17 12:21 | Outpatient (CLI) | payer OTHER | END 2021-08-17 12:22 | disposition home or self-care (01) | LOC: BICMAMMO 12:21 | PROVIDERS: ATTEND Student in an Organized Health Care Education/Training Program | DX: Z12.31 Encounter for screening mammogram for malignant neoplasm of breast (principal) | CPT/HCPCS: 77067 ==

== ENCOUNTER 2023-04-05 14:17 | Outpatient (CLI) | payer OTHER | END 2023-04-05 14:18 | disposition home or self-care (01) | LOC: BICMAMMO 14:17 | PROVIDERS: ATTEND Obstetrics & Gynecology | DX: N64.89 Other specified disorders of breast (principal); R92.2 Inconclusive mammogram; N63.25 Unspecified lump in the left breast, overlapping quadrants | CPT/HCPCS: G0279 ==